=== PATIENT | male | born 1985 | race Caucasian/White ===

== ENCOUNTER 2017-06-28 22:27 | Emergency (ER) | payer BC ==
[~2017-06-28] VITALS: Ht 167.6 cm; Wt 76.2 kg
[2017-06-28 23:20] VITALS: BP 125/81
== END 2017-06-28 23:20 | disposition home or self-care (01) ==
LOC: ED 22:27
DX: N48.89 Other specified disorders of penis (principal); R21 Rash and other nonspecific skin eruption

== ENCOUNTER 2017-10-29 14:17 | Emergency (ER) | payer BC ==
[~2017-10-29] VITALS: Ht 170.2 cm; Wt 78.6 kg
[2017-10-29 14:49] VITALS: BP 134/76; Ht 170.2 cm; Wt 78.6 kg
== END 2017-10-29 16:02 | disposition home or self-care (01) ==
LOC: ED 14:17
DX: R11.10 Vomiting, unspecified (principal); R19.7 Diarrhea, unspecified; R10.9 Unspecified abdominal pain; Z88.0 Allergy status to penicillin

== ENCOUNTER 2017-12-13 16:28 | Emergency (ER) | payer BC ==
[~2017-12-13] VITALS: Ht 172.7 cm; Wt 78.9 kg
[2017-12-13 16:36] VITALS: BP 141/84; Ht 172.7 cm; Wt 78.9 kg
== END 2017-12-13 17:42 | disposition home or self-care (01) ==
LOC: ED 16:28
DX: K59.00 Constipation, unspecified (principal); K92.1 Melena; Z88.0 Allergy status to penicillin

== ENCOUNTER 2018-03-01 15:57 | Emergency (ER) | payer BC ==
[~2018-03-01] VITALS: Ht 170.2 cm; Wt 78.6 kg
[2018-03-01 16:08] VITALS: Ht 170.2 cm; Wt 78.6 kg
[2018-03-01 19:43] LABS: BASOPHIL % 0.4 % (0-2); PLATELET COUNT 269 x10^3mcL (130-400); RED CELL DISTRIBUTION WIDTH 13.3 % (11.5-14.5)
[2018-03-01 19:47] LABS: microscopic required? NO
[2018-03-01 19:54] LABS: CALCIUM 8.9 mg/dL (8.5-10.1); CARBON DIOXIDE 28.7 mmol/L (21-32); CHLORIDE SERUM 106 mmol/L (98-107); CREATININE SERUM 0.8 mg/dL (0.7-1.3); GFR1 > 60 mL/min; GLUCOSE SERUM 85 mg/dL (74-106); POTASSIUM SERUM 3.8 mmol/L (3.5-5.1); SODIUM SERUM 144 mmol/L (136-145)
[2018-03-01 19:59] LABS: ALBUMIN 3.8 g/dL (3.4-5.0); ALKALINE PHOSPHATASE 114 U/L (46-116); ALT/SGPT 55 U/L (16-63); AST/SGOT 24 U/L (15-37); LIPASE 100 IU/L (73-393); TOTAL PROTEIN, SERUM 7.6 g/dL (6.4-8.2)
[2018-03-01 20:20] LABS: UA SPECIFIC GRAVITY 1.025 (1.005-1.035); urine erythrocyte NEGATIVE (NEGATIVE)
[2018-03-01 22:45] VITALS: BP 104/58
== END 2018-03-01 22:45 | disposition home or self-care (01) ==
LOC: ED 15:57
PROVIDERS: Emergency Medicine
DX: R10.32 Left lower quadrant pain (principal); Z88.0 Allergy status to penicillin
CPT/HCPCS: Q9967